=== PATIENT | male | born 1935 | race Caucasian/White ===

== ENCOUNTER 2021-10-21 12:10 | Inpatient (IN) ==
--- NOTE | 2021-10-21 12:39 | Emergency Department Note ---
Weakness HPI General Chief complaint: Weakness Stated complaint: weakness, dehydration Time Seen by Provider: 10/21/21 12:13 Source: EMS Mode of arrival: EMS History of Present Illness HPI Narrative: Narrative: 86-year-old male presents from [facility] via ambulance to be evaluated for progressive weakness and shortness of breath. He says this is been slowly creeping up on him over the past few weeks. He feels very dehydrated and his mouth is dry. He says he does not use oxygen at home but needed on the ambulance and he had oxygen saturations dropping to 88% at [facility]. He has history of heart attack and heart failure and pacemaker. He has a history of chronic A. fib and mitral valve regurgitation. He takes Entresto and Eliquis. He states he has had no chest pain, chest pressure, nausea, vomiting, abdominal pain, dysuria, urgency or frequency. He states he feels very dry in his mouth. He does take Lasix. He has had a rash all over his chest, abdomen and lower extremities it is painful in the lower extremities. He has not been placed on any new medications and does not have any desquamation of mucous membranes. He has been applying salves and this is been helping somewhat. He states his lower extremities are swollen and oozing somewhat. He denies fever or body aches. He is seen by the [facility] cardiology clinic and has an EF of 16% last echo 02/15. Related Data Home Medications Medication Instructions Recorded Confirmed apixaban 2.5 mg tablet 2.5 mg PO BID 05/10/21 09/20/21 furosemide 40 mg tablet 40 mg PO QDAY 05/10/21 09/20/21 metoprolol succinate 100 mg 100 mg PO BID 05/10/21 09/20/21 tablet,extended release 24 hr amiodarone 200 mg tablet 200 mg PO QDAY 07/18/21 09/20/21 mecobalamin (vitamin B12) 5,000 5,000 mcg PO QDAY tab 07/18/21 09/20/21 mcg disintegrating tablet sacubitril 49 mg-valsartan 51 mg 1 tab PO BID 07/18/21 09/20/21 tablet (Entresto) Glucosamine 1500mg-chondroitin 2 cap PO QAM 07/20/21 09/20/21 1200mg Previous Rx's Medication Instructions Recorded acetaminophen 650 mg See Rx Instructions PO .COMPLEX 08/04/21 tablet,extended release (Tylenol #150 tab Arthritis Pain) Allergies Allergy/AdvReac Type Severity Reaction Status Date / Time No Known Drug Allergies Allergy Verified 09/20/21 08:38 Review of Systems ROS ROS Narrative: Narrative: All systems ED: reviewed and negative except as stated. 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 Sclerae non icteric HENMT: Normocephalic Atraumatic head, external nose and ears. Moist MM. Neck: Symmetric, trachea midline, CVS: +S1/S2, MVR. Radial pulses 2+ and equal bilat. 2+ pitting edema of the lower extremities RESP: Unlabored respiratory effort . Clear to auscultation bilaterally (CTAB). No noted wheezes rales or ronchi. GI: Nontender/Nondistended (NTND), No focal tenderness MSK: Extremities w/o deformity or ttp. No cyanosis or clubbing. Lower extremity swelling bilaterally Skin: Warm, Dry . Significant crusting rash across the chest, back, abdomen and lower extremities. He has lotion applied and states this helped significantly. Cap refill less than 2. Neuro: No focal neurological deficit Psych: Awake, Alert, & Oriented (AAO) x3. Appropriate mood and affect . Course Vital Signs Vital signs: Vital Signs Temperature 98.2 F 10/21/21 12:13 Pulse Rate 73 10/21/21 12:13 Respiratory Rate 18 10/21/21 12:13 Blood Pressure 128/94 10/21/21 12:13 Pulse Oximetry (%) 91 10/21/21 12:13 Temperature 98.2 F 10/21/21 12:13 Pulse Rate 80 10/21/21 12:22 Respiratory Rate 16 10/21/21 12:22 Blood Pressure 128/94 10/21/21 12:13 Pulse Oximetry (%) 92 10/21/21 12:22 MDM MDM Narrative Medical decision making narrative: Narrative: Patient is keenly alert and oriented. He is afebrile. He is necessitating 2 L of oxygen via nasal cannula to keep him above 90. He was D satting to 88% at [facility]. He does have a history of heart failure and increasing lower extremity swelling lately. I suspect this could be a congestive heart failure exacerbation. Patient will be evaluated with CBC, CMP, BNP, EKG, chest x-ray and [id number] troponin. CBC: severe macrocytosis, otherwise unremarkable Perhaps b12 or folate deficiency CMP: Creatinine at baseline, otherwise unremarkable BNP: 81292 H EKG: Atrial fibrillation with ventricular paced complexes at a rate of [address] or T wave abnormality to suggest acute ischemia. Chest x-ray: Consistent with congestive heart failure exacerbation as read by myself radiology overread pending [id number] troponin: Normal Patient has clinical picture of congestive heart failure exacerbation, his BNP is elevated, he has oxygen saturations that are below 90 on room air, he has pitting edema of the lower extremities and describes orthopnea. Patient's creatinine is at baseline he will be diuresed with 40 mg of Lasix at this time and the hospitalist be consulted for heart failure exacerbation. Dr. Tai: Graciously agreed to come down and evaluate the patient and accept him for inpatient admission. Discharge Plan Patient/Caregiver Discharge Instructions Pt seen by BISQUE BRUSHER/PA only: Yes Clinical Impression: Acute exacerbation of CHF (congestive heart failure) Patient Disposition: Xfer As Inpt ([facility]) Follow up with: Kory Vidales MD [Primary Care Provider] - Prescriptions: No Action acetaminophen [Tylenol Arthritis Pain] 650 mg tablet extended release See Rx Instructions PO .COMPLEX Qty: 150 12RF Rx Instructions: Take 2 tablets every morning and afternoon, 1 tablet every evening PO. apixaban 2.5 mg tablet 2.5 mg PO BID 0RF furosemide 40 mg tablet 40 mg PO QDAY 0RF metoprolol succinate 100 mg tablet extended release 24 hr 100 mg PO BID 0RF Entresto 49-51 mg tablet 1 tab PO BID 0RF amiodarone 200 mg tablet 200 mg PO QDAY 0RF mecobalamin (vitamin B12) 5,000 mcg tablet,disintegrating 5,000 mcg PO QDAY 0RF Glucosamine 1500mg-chondroitin 1200mg 2 cap PO QAM 0RF
--- NOTE | 2021-10-21 14:13 | XRay Report ---
CLINICAL INFORMATION: Shortness of breath COMPARISON: 04/01/2020. TECHNIQUE: Portable FINDINGS: Moderate cardiomegaly show slight increase. Implantable cardioverter defibrillator remains in stable position without complication. Mediastinum is normal. Moderate-sized infiltrates in both upper lobes have developed and obscure the upper lobe pulmonary vasculature. Minor interstitial disease noted which may represent edema. Small bilateral pleural effusions noted. IMPRESSION: Moderate bilateral upper lobe airspace disease. This is a atypical distribution pattern for pulmonary edema therefore either aspiration or infection is suspected. At least mild underlying CHF is probable although the vessels cannot be assessed due to infiltrate obscuration. If there is clinical support for CHF (elevated BNP, peripheral edema, jugular venous distention etc.), consider diuretic trial repeat two view chest x-ray for reassessment Interpreted and Authenticated by: Mynor Meneses 10/21/21
[2021-10-21 14:16] LABS: Basophils # (Auto) 0.03 K/mcL (0.00-0.30); Basophils % (Auto) 0.4 % (0.0-2.0); Eosinophils # (Auto) 0.81 K/mcL (0.00-0.70); Eosinophils % (Auto) 11.2 % (0.0-7.0); Hematocrit 44.5 % (40.1-51.0); Lymphocytes # (Auto) 1.39 K/mcL (1.50-4.80); Lymphocytes % (Auto) 19.3 % (15.5-49.0); Mean Cell Volume 106.7 fL (80.0-100.0); Mean Corpuscular HGB Conc 31.5 g/dL (31.0-36.0); Mean Platelet Volume 11.2 fL (7.4-10.4); Monocytes # (Auto) 1.42 K/mcL (0.10-0.90); Monocytes % (Auto) 19.7 % (1.0-12.0); Neutrophils % (Auto) 49.4 % (38.0-78.0); Platelet Count 141 K/mcL (140-440); RBC 4.17 M/mcL (4.63-6.08); Red Cell Distribution Width 19.4 % (11.5-14.5); WBC 7.2 K/mcL (4.5-11.0)
[2021-10-21 14:26] LABS: ALT/SGPT 17 U/L (<40); AST/SGOT 35 U/L (<40); Albumin 3.3 gm/dL (3.2-5.2); Albumin/Globulin Ratio 0.8 (1.0-2.3); Alkaline Phosphatase 170 U/L (39-117); Blood Urea Nitrogen 46 mg/dL (8-23); Calcium 8.8 mg/dL (8.6-10.4); Carbon Dioxide 18 mmol/L (22-30); Chloride 108 mmol/L (96-108); Globulin 4.1 gm/dL (2.2-3.7); Glomerular Filtration Rate 41; Glucose 98 mg/dL (70-105)
[2021-10-21] MEDS ORDERED: FUROSEMIDE 40 MG/4 ML VIAL IV ONE (14:29)
[2021-10-21] MEDS ORDERED: ACETAMINOPHEN 325 MG TABLET PO PRN (16:17)
[2021-10-21] MEDS ORDERED: ONDANSETRON 4 MG/2 ML VIAL IV PRN (16:17)
[2021-10-21] MEDS ORDERED: MAG HYDROX/AL HYDROX/SIMETH 30 ML ORAL.SUSP PO PRN (16:17)
[2021-10-21] MEDS ORDERED: CALCIUM CARBONATE 500 MG TAB.CHEW CHEWED PRN (16:17)
[2021-10-21] MEDS ORDERED: PROCHLORPERAZINE 10 MG/2 ML VIAL IV PRN (16:17)
[2021-10-21] MEDS ORDERED: MAGNESIUM HYDROXIDE 30 ML ORAL.SUSP PO PRN (16:17)
[2021-10-21] MEDS ORDERED: hydrALAZINE 20 MG/ML VIAL IV PRN (16:17)
[2021-10-21] MEDS ORDERED: MELATONIN 3 MG TABLET PO PRN (16:17)
[2021-10-21] MEDS ORDERED: DILTIAZEM 25 MG/5 ML VIAL IV PRN (16:17)
--- NOTE | 2021-10-21 16:23 | Cat Scan Report ---
CLINICAL INFORMATION: Pneumonia versus CHF COMPARISON: None TECHNIQUE: 0.625 mm axial slices were obtained from the lung apices through the bases without intravenous contrast. 2.5 mm Sagittal, coronal and axial reformatted images were processed and reviewed at bone, lung and soft tissue windows. 7 mm axial MIP images were also reconstructed to optimize pulmonary nodule detection.The exam was performed using radiation dose optimization techniques including, but not limited to, automated exposure control, adjustment of the mA and/or kV according to patient size and use of iterative reconstruction technique. FINDINGS: Large alveolar infiltrates are seen throughout both upper lobes with peripheral sparing. There are also moderate patchy infiltrates in the right middle lobe, lingula and both lower lobes. There is no interstitial pulmonary edema suggest CHF. Moderate right and small left pleural effusions appreciated. Mediastinal windows show the thoracic aorta is normal in diameter with atherosclerotic plaque. The heart is moderately enlarged with calcific plaque in the coronary arteries. Pacemaker leads in satisfactory position. The noncontrasted pulmonary arteries are normal diameter. A few mildly enlarged lymph nodes seen in the lower mediastinal and bihilar regions likely benign reactive lymph nodes related infiltrates. The esophagus is grossly normal. The thyroid is unremarkable. Bone windows show no osseous abnormality. Severe abdominal images show a 16 mm solitary stone in the gallbladder. The visualized kidneys, spleen, adrenal glands, pancreas and liver are unremarkable. IMPRESSION: 1. Large consolidated infiltrates throughout both upper lobes with moderate infiltrates within the right middle lobe, lingula and both lower lobes. Moderate right and small left pleural effusion is noted. Findings most compatible with aspiration or infection. ARDS is possible, but less likely. This does not have a distribution pattern for pulmonary edema related to CHF 2. Solitary 16 mm stone in the gallbladder Interpreted and Authenticated by: Mynor Meneses 10/21/21
[2021-10-21] MEDS: DOCUSATE SODIUM 100 MG CAPSULE PO SCH (21:26)
[2021-10-21] MEDS: SENNOSIDES 1 TABLET PO SCH (21:26)
[2021-10-21] MEDS: HEPARIN 5,000 UNIT/ML VIAL SQ SCH (21:26)
[2021-10-21] MEDS: QUEtiapine 25 MG TABLET PO PRN (21:26)
[2021-10-21] MEDS: 0.9 % SODIUM CHLORIDE 10 ML SYRINGE IV SCH (21:27)
[2021-10-22] MEDS: 0.9 % SODIUM CHLORIDE 10 ML SYRINGE IV SCH ×2 (05:47→15:17)
[2021-10-22 06:27] LABS: Basophils # (Auto) 0.04 K/mcL (0.00-0.30); Basophils % (Auto) 0.6 % (0.0-2.0); Eosinophils # (Auto) 0.84 K/mcL (0.00-0.70); Eosinophils % (Auto) 11.7 % (0.0-7.0); Hematocrit 41.2 % (40.1-51.0); Lymphocytes # (Auto) 1.23 K/mcL (1.50-4.80); Lymphocytes % (Auto) 17.2 % (15.5-49.0); Mean Cell Volume 107.3 fL (80.0-100.0); Mean Corpuscular HGB Conc 31.6 g/dL (31.0-36.0); Mean Platelet Volume 10.3 fL (7.4-10.4); Monocytes # (Auto) 1.11 K/mcL (0.10-0.90); Monocytes % (Auto) 15.5 % (1.0-12.0); Platelet Count 124 K/mcL (140-440); RBC 3.84 M/mcL (4.63-6.08); Red Cell Distribution Width 18.7 % (11.5-14.5); WBC 7.2 K/mcL (4.5-11.0)
[2021-10-22 06:58] LABS: ALT/SGPT 12 U/L (<40); AST/SGOT 24 U/L (<40); Albumin/Globulin Ratio 0.9 (1.0-2.3); Alkaline Phosphatase 140 U/L (39-117); Bilirubin,Total 1.3 mg/dL (0.1-1.0); Blood Urea Nitrogen 46 mg/dL (8-23); Calcium 8.6 mg/dL (8.6-10.4); Carbon Dioxide 19 mmol/L (22-30); Chloride 108 mmol/L (96-108); Globulin 3.3 gm/dL (2.2-3.7); Glomerular Filtration Rate 45; Glucose 78 mg/dL (70-105)
[2021-10-22] MEDS: PANTOPRAZOLE 40 MG TABLET PO SCH (07:57)
[2021-10-22] MEDS ORDERED: FUROSEMIDE 40 MG/4 ML VIAL IV SCH (08:00)
[2021-10-22] MEDS: METOPROLOL SUCCINATE 50 MG TAB.XL.24H PO SCH ×2 (09:21→20:11)
[2021-10-22] MEDS: DOCUSATE SODIUM 100 MG CAPSULE PO SCH ×2 (09:21→20:14)
[2021-10-22] MEDS: ASPIRIN 81 MG TAB.CHEW CHEWED SCH (09:21)
[2021-10-22] MEDS: APIXABAN 5 MG TABLET PO SCH ×2 (10:29→20:10)
[2021-10-22] MEDS: AMIODARONE HCL 200 MG TABLET PO SCH (10:29)
--- NOTE | 2021-10-22 10:54 | Internal Med History&Physical ---
HPI History of Present Illness Patient information: Note initiated : 10/21/21 at 3:53 pm Service Date, if different from initiated Date: [] Patient: Sami Pineda a 86 y/o M admitted on 10/21/21 for weakness, dehydration. Chief Complaint: [] History of present illness: Mr. Pineda is a 86 year old M This is a 86-year-old gentleman with a history of severe systolic failure with ejection fraction less than 20%, dilated cardiomyopathy biventricular ICD, was transferred from snf facility for further evaluation of progressive weakness and shortness of breath. Patient has been very dehydrated according to the report and his oxygen saturation dropping to 88% at the nursing facility patient has history of heart failure and biventricular ICD and chronic atrial fibrillation and mitral valve regurgitation. Patient takes Entresto and Eliquis has been progressively declining and was transferred over here. Initial evaluation in the ER suggestive of congestive heart failure and patient was given IV Lasix and admitted to our facility for further management Review of systems-history is limited due to limited communication and underlying dementia Constitutional: No reported fatigue no chills, no fever Eyes: no vision changes or pain Cardiovascular: no chest pain, reported intermittent palpitations Respiratory: occasional cough denied any choking episodes or aspiration Gastrointestinal: no nausea and stil have abdominal discomfort. Genitourinary: no dysuria or difficulty voiding Musculoskeletal: no arthralgia or myalgia Integumentary: no skin lesion or wound Neurological: no focal weakness or numbness Psychiatric: no anxiety or depression Physical exam Head: Very sleepy answering questions slowly Eyes: normal appearance, no scleral icterus. Neck: full ROM Respiratory: Bilateral crackles more on the right side and rails and intermittent wheezing Cardiovascular: normal rate and rhythm, S1, S2. GI/Abdominal: soft, nontender, no guarding. Extremities: full range of motion, nontender. Neurological: Slow to respond no focal deficit identified no hallucination no delusions Psychiatric: normal mood. 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) Heart attack (Acute ~01/2019) Arthritis pain (Acute) Medical History Arthritis pain Combined systolic and diastolic heart failure Dilated cardiomyopathy Heart attack (~01/2019) Mitral valve regurgitation Persistent atrial fibrillation Surgical History History of permanent cardiac pacemaker placement (02/11/19) Family History Other No pertinent family history Social History (Updated 07/18/21 @ 13:22 by Avani Pritchett CMA) household members: alone housing: assisted living facility lives independently: No marital status: smoking status: Former smoker smoking status stop date: 05/28/79 alcohol intake frequency: does not drink substance use type: does not use MEDS/ALLERGIES Home Medications and Allergies Home Medications Medication Instructions Recorded Confirmed Type apixaban 2.5 mg tablet 2.5 mg PO BID 05/10/21 10/22/21 History furosemide 40 mg tablet 40 mg PO QDAY 05/10/21 10/22/21 History metoprolol succinate 100 mg 100 mg PO BID 05/10/21 10/22/21 History tablet,extended release 24 hr amiodarone 200 mg tablet 200 mg PO QDAY 07/18/21 10/22/21 History sacubitril 49 mg-valsartan 51 mg 1 tab PO BID 07/18/21 10/22/21 History tablet (Entresto) acetaminophen 650 mg See Rx Instructions PO .COMPLEX 08/04/21 10/22/21 Rx tablet,extended release (Tylenol #150 tab Arthritis Pain) Kacey Allergy 180 mg PO DAILY 10/21/21 10/22/21 History Proctozone-HC 2.5 % TOPICAL Q12HP PRN 10/21/21 10/22/21 History Remedy Calazime Intensive Skin 1 dose TOPICAL DAILY 10/21/21 10/22/21 History ferrous sulfate 1 tab PO Q48H 10/21/21 10/22/21 History cyanocobalamin (vitamin B-12) 5,000 mcg PO DAILY 10/22/21 10/22/21 History 5,000 mcg capsule Allergies Allergy/AdvReac Type Severity Reaction Status Date / Time No Known Drug Allergies Allergy Verified 10/21/21 16:28 EXAM Constitutional Vitals: Temp Pulse Resp BP Pulse Ox 97.5 F 88 19 123/77 93 10/22/21 07:22 10/22/21 05:15 10/22/21 07:22 10/22/21 07:22 10/22/21 07:22 DATA Data Completed and Pending Labs: Labs from last 24 hours 10/22/21 10/22/21 10/22/21 05:32 05:32 00:10 WBC 7.2 RBC 3.84 L Hgb 13.0 L Hct 41.2 MCV 107.3 H MCH 33.9 MCHC 31.6 RDW 18.7 H Plt Count 124 L MPV 10.3 Neut % (Auto) 55.0 Lymph % (Auto) 17.2 [place] % (Auto) 15.5 H Eos % (Auto) 11.7 H Baso % (Auto) 0.6 Lymph # (Auto) 1.23 L [place] # (Auto) 1.11 H Eos # (Auto) 0.84 H Baso # (Auto) 0.04 Absolute Neutrophils 3.94 Sodium 143 Potassium 4.2 Chloride 108 Carbon Dioxide 19 L Anion Gap 16.0 BUN 46 H Creatinine 1.4 H GFR Calculation 45 Glucose 78 Calcium 8.6 Magnesium 2.4 Total Bilirubin 1.3 H AST 24 ALT 12 Alkaline Phosphatase 140 H Troponin T 0.02 NT-Pro-B Natriuret Pep Total Protein 6.3 Albumin 3.0 L Globulin 3.3 Albumin/Globulin Ratio 0.9 L POC Troponin I 10/21/21 10/21/21 10/21/21 17:58 12:38 12:15 WBC RBC Hgb Hct MCV MCH MCHC RDW Plt Count MPV Neut % (Auto) Lymph % (Auto) [place] % (Auto) Eos % (Auto) Baso % (Auto) Lymph # (Auto) [place] # (Auto) Eos # (Auto) Baso # (Auto) Absolute Neutrophils Sodium 141 Potassium 4.9 Chloride 108 Carbon Dioxide 18 L Anion Gap 15.0 BUN 46 H Creatinine 1.5 H GFR Calculation 41 Glucose 98 Calcium 8.8 Magnesium Total Bilirubin 1.0 AST 35 ALT 17 Alkaline Phosphatase 170 H Troponin T < 0.01 NT-Pro-B Natriuret Pep 73108.0 H Total Protein 7.4 Albumin 3.3 Globulin 4.1 H Albumin/Globulin Ratio 0.8 L POC Troponin I 0.01 L 10/21/21 12:15 WBC 7.2 RBC 4.17 L Hgb 14.0 Hct 44.5 MCV 106.7 H MCH 33.6 MCHC 31.5 RDW 19.4 H Plt Count 141 MPV 11.2 H Neut % (Auto) 49.4 Lymph % (Auto) 19.3 [place] % (Auto) 19.7 H Eos % (Auto) 11.2 H Baso % (Auto) 0.4 Lymph # (Auto) 1.39 L [place] # (Auto) 1.42 H Eos # (Auto) 0.81 H Baso # (Auto) 0.03 Absolute Neutrophils 3.57 Sodium Potassium Chloride Carbon Dioxide Anion Gap BUN Creatinine GFR Calculation Glucose Calcium Magnesium Total Bilirubin AST ALT Alkaline Phosphatase Troponin T NT-Pro-B Natriuret Pep Total Protein Albumin Globulin Albumin/Globulin Ratio POC Troponin I A/P Narrative Plan of Treatment: Acute on chronic systolic congestive heart failure Chronic left ventricular failure with ejection fraction around 15 to 20% Dilated cardiomyopathy status post biventricular ICD Persistent atrial fibrillation Moderate to severe mitral regurgitation Plan Patient presented with worsening shortness of breath and weakness He was evaluated his creatinine was slightly elevated 1.5 from baseline 1.2-1.3 Patient was given IV Lasix Patient takes amiodarone at home continued We will obtain a CT scan as there is suspicion about pneumonia Underlying dementia Monitor for any delirium Persistent atrial fibrillation Continue amiodarone Continue metoprolol 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
--- NOTE | 2021-10-22 10:56 | Internal Med Progress Note ---
SUBJECTIVE Subjective Patient information: Note initiated : 10/22/21 at 10:54 am Service Date, if different from initiated Date: [] Patient: Sami Pineda 86 y/o M admitted on 10/21/21 for weakness, dehydration. Chief Complaint: [] Interval history: This is a 86-year-old gentleman with a history of severe systolic failure with ejection fraction less than 20%, dilated cardiomyopathy biventricular ICD, [facility] evaluation of progressive weakness and shortness of breath. Patient has been very dehydrated according to the report and his oxygen saturation dropping to 88% at the nursing facility patient has history of heart failure and biventricular ICD and chronic atrial fibrillation and mitral valve regurgitation. Patient takes Entresto and Eliquis has been progressively declining and was transferred over here. Initial evaluation in the ER suggestive of congestive heart failure and patient was given IV Lasix and admitted to our facility for further management 10/22 Patient was started Zosyn and azithromycin due to CT scan showing definite consolidation and pneumonia Patient continues needing oxygen Discontinue Lasix last night patient appears to be hypovolemic or euvolemic next We will give the patient albumin infusion if his blood pressure drops Review of systems-history is limited due to limited communication and underlying dementia Constitutional: No reported fatigue no chills, no fever Eyes: no vision changes or pain Cardiovascular: no chest pain, reported intermittent palpitations Respiratory: Continued having occasional cough denied any choking episodes or aspiration Gastrointestinal: no nausea and stil have abdominal discomfort. Genitourinary: no dysuria or difficulty voiding Musculoskeletal: no arthralgia or myalgia Integumentary: no skin lesion or wound Neurological: no focal weakness or numbness Psychiatric: no anxiety or depression Physical exam Head: Very sleepy answering questions slowly Eyes: normal appearance, no scleral icterus. Neck: full ROM Respiratory: Crackles and intermittent wheezing and rails no significant improvement Cardiovascular: normal rate and rhythm, S1, S2. GI/Abdominal: soft, nontender, no guarding. Extremities: full range of motion, nontender. Neurological: Slow to respond no focal deficit identified no hallucination no delusions Psychiatric: normal mood. Skin: Multiple bruises and ecchymosis Constitutional Vitals: Vital Signs Temp Pulse Resp BP Pulse Ox 97.5 F 88 19 123/77 93 10/22/21 07:22 10/22/21 05:15 10/22/21 07:22 10/22/21 07:22 10/22/21 07:22 Period Temp Pulse Resp BP Sys/[place] Pulse Ox Last 24 Hr 97.1 F-98.3 F 70-90 14-25 112-136/64-97 91-98 Intake and Output 10/21/21 10/22/21 10/22/21 21:59 05:59 13:59 Output Total 350 500 Balance -350 -500 Weight 69.264 kg Intake & Output: Intake & Output 10/21/21 10/22/21 10/22/21 21:59 05:59 13:59 Output Total 350 500 Balance -350 -500 Weight 69.264 kg Output: Void Amount 350 500 Other: Urine Appearance Clear Clear Urine Color Dark Yellow Dark Yellow Urine Odor Normal # Voids 1 OBJ DATA Labs CBC & Chem 7: 10/22/21 05:32 10/22/21 05:32 Labs: Abnormal Lab Results 10/22/21 10/22/21 10/21/21 05:32 05:32 12:38 RBC 3.84 L Hgb 13.0 L MCV 107.3 H RDW 18.7 H Plt Count 124 L MPV [place] % (Auto) 15.5 H Eos % (Auto) 11.7 H Lymph # (Auto) 1.23 L [place] # (Auto) 1.11 H Eos # (Auto) 0.84 H Carbon Dioxide 19 L BUN 46 H Creatinine 1.4 H Total Bilirubin 1.3 H Alkaline Phosphatase 140 H NT-Pro-B Natriuret Pep Albumin 3.0 L Globulin Albumin/Globulin Ratio 0.9 L POC Troponin I 0.01 L 10/21/21 10/21/21 12:15 12:15 RBC 4.17 L Hgb MCV 106.7 H RDW 19.4 H Plt Count MPV 11.2 H [place] % (Auto) 19.7 H Eos % (Auto) 11.2 H Lymph # (Auto) 1.39 L [place] # (Auto) 1.42 H Eos # (Auto) 0.81 H Carbon Dioxide 18 L BUN 46 H Creatinine 1.5 H Total Bilirubin Alkaline Phosphatase 170 H NT-Pro-B Natriuret Pep 09981.0 H Albumin Globulin 4.1 H Albumin/Globulin Ratio 0.8 L POC Troponin I Meds: Medications Acetaminophen (Acetaminophen 325 Mg Tablet) 650 mg PO Q6HP PRN; Protocol PRN Reason: Per Pain Protocol/Fever > 101 Last Admin: 10/21/21 21:32 Dose: 650 mg Documented by: Al Hydrox/Mg Hydrox/Simethicone (Mag Hydrox/Al Hydrox/Simeth 30 Ml Oral.Susp) 30 ml PO Q6HP PRN PRN Reason: Dyspepsia Albuterol Sulfate (Albuterol Sulfate 2.5 Mg/3 Ml Nebulizer) 2.5 mg NEB Q2HP PRN PRN Reason: Shortness Of Breath Amiodarone HCl (Amiodarone Hcl 200 Mg Tablet) 200 mg PO QDAY [facility] Last Admin: 10/22/21 10:29 Dose: 200 mg Documented by: Apixaban (Apixaban 5 Mg Tablet) 2.5 mg PO BID [facility] Last Admin: 10/22/21 10:29 Dose: 2.5 mg Documented by: Aspirin (Aspirin 81 Mg Tab.Chew) 81 mg CHEWED DAILY [facility] Last Admin: 10/22/21 09:21 Dose: 81 mg Documented by: Azithromycin (Azithromycin 250 Mg Tablet) 250 mg PO DAILY [facility]; Protocol Stop: 10/25/21 09:01 Calcium Carbonate/Glycine (Calcium Carbonate 500 Mg Tab.Chew) 1,000 mg CHEWED Q4HP PRN PRN Reason: Dyspepsia Diltiazem HCl (Diltiazem 25 Mg/5 Ml Vial) 10 mg IV Q4HP PRN PRN Reason: Tachyarrhythmias Docusate Sodium (Docusate Sodium 100 Mg Capsule) 100 mg PO BID [facility] Last Admin: 10/22/21 09:21 Dose: 100 mg Documented by: Hydralazine HCl (Hydralazine 20 Mg/Ml Vial) 10 mg IV Q4-6HP PRN PRN Reason: Hypertension Piperacillin Sod/Tazobactam (Sod 3.375 gm/ Dextrose) 50 mls @ 100 mls/hr IV Q6H [facility]; Protocol Magnesium Hydroxide (Magnesium Hydroxide 30 Ml Oral.Susp) 30 ml PO DAILYP PRN PRN Reason: Constipation Melatonin (Melatonin 3 Mg Tablet) 3 mg PO HSP PRN PRN Reason: Insomnia Last Admin: 10/21/21 21:26 Dose: 3 mg Documented by: Metoprolol Succinate (Metoprolol Succinate 50 Mg Tab.Xl.24h) 100 mg PO BID [facility] Last Admin: 10/22/21 09:21 Dose: 100 mg Documented by: Ondansetron HCl (Ondansetron 4 Mg/2 Ml Vial) 4 mg IV Q6HP PRN PRN Reason: Nausea And Vomiting Pantoprazole Sodium (Pantoprazole 40 Mg Tablet) 40 mg PO QAMAC [facility] Last Admin: 10/22/21 07:57 Dose: 40 mg Documented by: Prochlorperazine (Prochlorperazine 10 Mg/2 Ml Vial) 5 mg IV Q4HP PRN PRN Reason: Nausea And Vomiting Quetiapine Fumarate (Quetiapine 25 Mg Tablet) 12.5 mg PO HSP PRN PRN Reason: iNSOMNIA-2nd option Last Admin: 10/21/21 21:26 Dose: 12.5 mg Documented by: Senna (Sennosides 1 Tablet) 2 tab PO HS [facility] Last Admin: 10/21/21 21:26 Dose: 2 tab Documented by: Sodium Chloride (0.9 % Sodium Chloride 10 Ml Syringe) 10 ml IV Q8 [facility] Last Admin: 10/22/21 05:47 Dose: 10 ml Documented by: Tramadol HCl (Tramadol 50 Mg Tablet) 50 mg PO Q4-6HP PRN; Protocol PRN Reason: Pain A/P Narrative Plan of Treatment: Acute hypoxemic respiratory failure Community-acquired pneumonia Patient chest CT scan showing evidence of consolidation and pneumonia No leukocytosis no fever Possible aspiration Plan Will monitor for any aspiration Sputum culture and gram stain ordered We will start the patient on antibiotic Acute on chronic systolic congestive heart failure Chronic left ventricular failure with ejection fraction around 15 to 20% Dilated cardiomyopathy status post biventricular ICD Persistent atrial fibrillation Moderate to severe mitral regurgitation Plan Patient presented with worsening shortness of breath and weakness He was evaluated his creatinine was slightly elevated 1.5 from baseline 1.2-1.3 Patient was given IV Lasix Patient takes amiodarone at home continued We will obtain a CT scan as there is suspicion about pneumonia Underlying dementia Monitor for any delirium Persistent atrial fibrillation Continue amiodarone 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
[2021-10-22] MEDS: HEPARIN 5,000 UNIT/ML VIAL SQ SCH (11:22)
[2021-10-22] MEDS: PIPERACILLIN SODIUM/TAZOBACTAM 3.375 GM in DEXTROSE 5% IN WATER 50 ML IV SCH ×2 (11:44→17:09)
[2021-10-22] MEDS: AZITHROMYCIN 250 MG TABLET PO SCH (11:44)
[2021-10-22] MEDS: traMADol 50 MG TABLET PO PRN (17:09)
[2021-10-22] MEDS: QUEtiapine 25 MG TABLET PO PRN (20:11)
[2021-10-22] MEDS: SENNOSIDES 1 TABLET PO SCH (20:14)
[2021-10-23] MEDS: 0.9 % SODIUM CHLORIDE 10 ML SYRINGE IV SCH ×3 (00:08→14:36)
[2021-10-23] MEDS: PIPERACILLIN SODIUM/TAZOBACTAM 3.375 GM in DEXTROSE 5% IN WATER 50 ML IV SCH ×2 (00:08→06:31)
[2021-10-23 06:43] LABS: Basophils # (Auto) 0.04 K/mcL (0.00-0.30); Basophils % (Auto) 0.6 % (0.0-2.0); Eosinophils # (Auto) 0.78 K/mcL (0.00-0.70); Eosinophils % (Auto) 11.3 % (0.0-7.0); Hematocrit 40.9 % (40.1-51.0); Hemoglobin 12.7 g/dL (13.7-17.5); Lymphocytes # (Auto) 1.12 K/mcL (1.50-4.80); Lymphocytes % (Auto) 16.3 % (15.5-49.0); Mean Cell Volume 109.7 fL (80.0-100.0); Mean Corpuscular HGB Conc 31.1 g/dL (31.0-36.0); Mean Platelet Volume 10.2 fL (7.4-10.4); Monocytes # (Auto) 1.08 K/mcL (0.10-0.90); Monocytes % (Auto) 15.7 % (1.0-12.0); Neutrophils % (Auto) 56.1 % (38.0-78.0); Platelet Count 127 K/mcL (140-440); RBC 3.73 M/mcL (4.63-6.08); Red Cell Distribution Width 18.7 % (11.5-14.5); WBC 6.9 K/mcL (4.5-11.0)
[2021-10-23 07:04] LABS: ALT/SGPT 12 U/L (<40); AST/SGOT 23 U/L (<40); Albumin 2.7 gm/dL (3.2-5.2); Albumin/Globulin Ratio 0.8 (1.0-2.3); Alkaline Phosphatase 131 U/L (39-117); Bilirubin,Total 1.1 mg/dL (0.1-1.0); Blood Urea Nitrogen 37 mg/dL (8-23); Calcium 8.5 mg/dL (8.6-10.4); Carbon Dioxide 21 mmol/L (22-30); Chloride 108 mmol/L (96-108); Globulin 3.3 gm/dL (2.2-3.7); Glomerular Filtration Rate 45; Glucose 83 mg/dL (70-105)
[2021-10-23] MEDS: PANTOPRAZOLE 40 MG TABLET PO SCH (07:21)
[2021-10-23] MEDS: AMIODARONE HCL 200 MG TABLET PO SCH (08:57)
[2021-10-23] MEDS: AZITHROMYCIN 250 MG TABLET PO SCH (08:57)
[2021-10-23] MEDS: DOCUSATE SODIUM 100 MG CAPSULE PO SCH ×2 (08:57→20:09)
[2021-10-23] MEDS: APIXABAN 5 MG TABLET PO SCH ×2 (08:57→20:09)
[2021-10-23] MEDS: METOPROLOL SUCCINATE 50 MG TAB.XL.24H PO SCH ×2 (08:58→20:09)
[2021-10-23] MEDS: ASPIRIN 81 MG TAB.CHEW CHEWED SCH (08:58)
--- NOTE | 2021-10-23 10:05 | Internal Med Progress Note ---
SUBJECTIVE Subjective Patient information: Note initiated : 10/23/21 at 10:05 am Service Date, if different from initiated Date: [] Patient: Sami Pineda 86 y/o M admitted on 10/21/21 for weakness, dehydration. Chief Complaint: [] Interval history: 86-year-old gentleman with a history of severe systolic failure with ejection fraction less than 20%, dilated cardiomyopathy biventricular ICD, [facility] further evaluation of progressive weakness and shortness of breath. Patient has been very dehydrated according to the report and his oxygen saturation dropping to 88% at the nursing facility patient has history of heart failure and biventricular ICD and chronic atrial fibrillation and mitral valve regurgitation. Patient takes Entresto and Eliquis has been progressively declining and was transferred over here. Initial evaluation in the ER suggestive of congestive heart failure and patient was giv en IV Lasix and admitted to our facility for further management 10/22 Patient was started Zosyn and azithromycin due to CT scan showing definite consolidation and pneumonia Patient continues needing oxygen Discontinue Lasix last night patient appears to be hypovolemic or euvolemic next We will give the patient albumin infusion if his blood pressure drops 10/23 Patient continues needing 2 L of nasal cannula oxygen Continue Zosyn and azithromycin Family talk to the care team about considering hospice care for the patient wt poor quality of life Review of systems-history is limited due to limited communication and underlying dementia Constitutional: No reported fatigue no chills, no fever Cardiovascular: no chest pain, reported intermittent palpitations Respiratory: Continued having occasional cough denied any choking episodes or aspiration Gastrointestinal: no nausea and stil have abdominal discomfort. Genitourinary: no dysuria or difficulty voiding Neurological: no focal weakness or numbness Physical exam Head: Very sleepy answering questions slowly Eyes: normal appearance, no scleral icterus. Neck: full ROM Respiratory: Crackles and intermittent wheezing and rails no significant improvement Cardiovascular: normal rate and rhythm, S1, S2. GI/Abdominal: soft, nontender, no guarding. Extremities: full range of motion, nontender. Neurological: Slow to respond no focal deficit identified no hallucination no delusions Psychiatric: normal mood. Skin: Multiple bruises and ecchymosis Constitutional Vitals: Vital Signs Temp Pulse Resp BP Pulse Ox 97.8 F 75 16 128/68 94 10/23/21 07:07 10/23/21 07:07 10/23/21 07:07 10/23/21 08:30 10/23/21 07:07 Period Temp Pulse Resp BP Sys/[place] Pulse Ox Last 24 Hr 97.0 F-97.8 F 70-82 16-22 87-129/42-80 90-98 Intake and Output 10/22/21 10/23/21 10/23/21 21:59 05:59 13:59 Intake Total 850 50 Output Total 475 1755 Balance 375 -1705 Weight 68.991 kg Intake & Output: Intake & Output 10/22/21 10/23/21 10/23/21 21:59 05:59 13:59 Intake Total 850 50 Output Total 475 1755 Balance 375 -1705 Weight 68.991 kg Intake: IV 50 50 Zosyn 3.375 gm In Dextrose 5% 50 50 in Water 50 ml @ 100 mls/hr IV Q6H [facility] Rx#:[id number] Oral 800 Output: Void Amount 475 1755 Other: Meal Lunch Percent of Meal Consumed 0% Urine Appearance Clear Clear Urine Color Bright Yellow Dark Yellow OBJ DATA Labs CBC & Chem 7: 10/23/21 05:34 10/23/21 05:34 Labs: Abnormal Lab Results 10/23/21 10/23/21 10/22/21 05:34 05:34 05:32 RBC 3.73 L Hgb 12.7 L MCV 109.7 H RDW 18.7 H Plt Count 127 L MPV [place] % (Auto) 15.7 H Eos % (Auto) 11.3 H Lymph # (Auto) 1.12 L [place] # (Auto) 1.08 H Eos # (Auto) 0.78 H Carbon Dioxide 21 L 19 L BUN 37 H 46 H Creatinine 1.4 H 1.4 H Calcium 8.5 L Total Bilirubin 1.1 H 1.3 H Alkaline Phosphatase 131 H 140 H NT-Pro-B Natriuret Pep Albumin 2.7 L 3.0 L Globulin Albumin/Globulin Ratio 0.8 L 0.9 L POC Troponin I 10/22/21 10/21/21 10/21/21 05:32 12:38 12:15 RBC 3.84 L Hgb 13.0 L MCV 107.3 H RDW 18.7 H Plt Count 124 L MPV [place] % (Auto) 15.5 H Eos % (Auto) 11.7 H Lymph # (Auto) 1.23 L [place] # (Auto) 1.11 H Eos # (Auto) 0.84 H Carbon Dioxide 18 L BUN 46 H Creatinine 1.5 H Calcium Total Bilirubin Alkaline Phosphatase 170 H NT-Pro-B Natriuret Pep 74588.0 H Albumin Globulin 4.1 H Albumin/Globulin Ratio 0.8 L POC Troponin I 0.01 L 10/21/21 12:15 RBC 4.17 L Hgb MCV 106.7 H RDW 19.4 H Plt Count MPV 11.2 H [place] % (Auto) 19.7 H Eos % (Auto) 11.2 H Lymph # (Auto) 1.39 L [place] # (Auto) 1.42 H Eos # (Auto) 0.81 H Carbon Dioxide BUN Creatinine Calcium Total Bilirubin Alkaline Phosphatase NT-Pro-B Natriuret Pep Albumin Globulin Albumin/Globulin Ratio POC Troponin I Meds: Medications Acetaminophen (Acetaminophen 325 Mg Tablet) 650 mg PO Q6HP PRN; Protocol PRN Reason: Per Pain Protocol/Fever > 101 Last Admin: 10/21/21 21:32 Dose: 650 mg Documented by: Al Hydrox/Mg Hydrox/Simethicone (Mag Hydrox/Al Hydrox/Simeth 30 Ml Oral.Susp) 30 ml PO Q6HP PRN PRN Reason: Dyspepsia Albuterol Sulfate (Albuterol Sulfate 2.5 Mg/3 Ml Nebulizer) 2.5 mg NEB Q2HP PRN PRN Reason: Shortness Of Breath Amiodarone HCl (Amiodarone Hcl 200 Mg Tablet) 200 mg PO QDAY [facility] Last Admin: 10/23/21 08:57 Dose: 200 mg Documented by: Apixaban (Apixaban 5 Mg Tablet) 2.5 mg PO BID [facility] Last Admin: 10/23/21 08:57 Dose: 2.5 mg Documented by: Aspirin (Aspirin 81 Mg Tab.Chew) 81 mg CHEWED DAILY [facility] Last Admin: 10/23/21 08:58 Dose: 81 mg Documented by: Azithromycin (Azithromycin 250 Mg Tablet) 250 mg PO DAILY [facility]; Protocol Stop: 10/25/21 09:01 Last Admin: 10/23/21 08:57 Dose: 250 mg Documented by: Calcium Carbonate/Glycine (Calcium Carbonate 500 Mg Tab.Chew) 1,000 mg CHEWED Q4HP PRN PRN Reason: Dyspepsia Diltiazem HCl (Diltiazem 25 Mg/5 Ml Vial) 10 mg IV Q4HP PRN PRN Reason: Tachyarrhythmias Docusate Sodium (Docusate Sodium 100 Mg Capsule) 100 mg PO BID [facility] Last Admin: 10/23/21 08:57 Dose: Not Given Documented by: Hydralazine HCl (Hydralazine 20 Mg/Ml Vial) 10 mg IV Q4-6HP PRN PRN Reason: Hypertension Piperacillin Sod/Tazobactam (Sod 2.25 gm/ Dextrose) 50 mls @ 100 mls/hr IV Q6H [facility]; Protocol Magnesium Hydroxide (Magnesium Hydroxide 30 Ml Oral.Susp) 30 ml PO DAILYP PRN PRN Reason: Constipation Melatonin (Melatonin 3 Mg Tablet) 3 mg PO HSP PRN PRN Reason: Insomnia Last Admin: 10/21/21 21:26 Dose: 3 mg Documented by: Metoprolol Succinate (Metoprolol Succinate 50 Mg Tab.Xl.24h) 100 mg PO BID [facility] Last Admin: 10/23/21 08:58 Dose: 100 mg Documented by: Ondansetron HCl (Ondansetron 4 Mg/2 Ml Vial) 4 mg IV Q6HP PRN PRN Reason: Nausea And Vomiting Pantoprazole Sodium (Pantoprazole 40 Mg Tablet) 40 mg PO QAMAC [facility] Last Admin: 10/23/21 07:21 Dose: 40 mg Documented by: Prochlorperazine (Prochlorperazine 10 Mg/2 Ml Vial) 5 mg IV Q4HP PRN PRN Reason: Nausea And Vomiting Quetiapine Fumarate (Quetiapine 25 Mg Tablet) 12.5 mg PO HSP PRN PRN Reason: iNSOMNIA-2nd option Last Admin: 10/22/21 20:11 Dose: 12.5 mg Documented by: Senna (Sennosides 1 Tablet) 2 tab PO [facility] Last Admin: 10/22/21 20:14 Dose: Not Given Documented by: Sodium Chloride (0.9 % Sodium Chloride 10 Ml Syringe) 10 ml IV Q8 [facility] Last Admin: 10/23/21 06:31 Dose: 10 ml Documented by: Tramadol HCl (Tramadol 50 Mg Tablet) 50 mg PO Q4-6HP PRN; Protocol PRN Reason: Pain Last Admin: 10/22/21 17:09 Dose: 50 mg Documented by: A/P Narrative Plan of Treatment: Acute hypoxemic respiratory failure Community-acquired pneumonia Patient chest CT scan showing evidence of consolidation and pneumonia No leukocytosis no fever Possible aspiration Plan Will monitor for any aspiration Sputum culture and gram stain ordered Continue Zosyn and azithromycin Acute on chronic systolic congestive heart failure Chronic left ventricular failure with ejection fraction around 15 to 20% Dilated cardiomyopathy status post biventricular ICD Persistent atrial fibrillation Moderate to severe mitral regurgitation Plan Patient presented with worsening shortness of breath and weakness He was evaluated his creatinine was slightly elevated 1.5 from baseline 1.2-1.3 Patient was given IV Lasix x2 and appears to be euvolemic Patient takes amiodarone at home continued Underlying dementia Monitor for any delirium Persistent atrial fibrillation Continue amiodarone 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
[2021-10-23] MEDS: traMADol 50 MG TABLET PO PRN ×2 (10:23→17:55)
[2021-10-23] MEDS: PIPERACILLIN SODIUM/TAZOBACTAM 2.25 GM in DEXTROSE 5% IN WATER 50 ML IV SCH ×2 (12:16→17:51)
[2021-10-23] MEDS: SENNOSIDES 1 TABLET PO SCH (20:09)
[2021-10-24] MEDS: 0.9 % SODIUM CHLORIDE 10 ML SYRINGE IV SCH ×4 (00:01→23:54)
[2021-10-24] MEDS: PIPERACILLIN SODIUM/TAZOBACTAM 2.25 GM in DEXTROSE 5% IN WATER 50 ML IV SCH ×5 (05:53→23:53)
[2021-10-24 06:56] LABS: Basophils # (Auto) 0.05 K/mcL (0.00-0.30); Basophils % (Auto) 0.7 % (0.0-2.0); Eosinophils # (Auto) 0.87 K/mcL (0.00-0.70); Eosinophils % (Auto) 11.4 % (0.0-7.0); Hematocrit 40.8 % (40.1-51.0); Hemoglobin 12.7 g/dL (13.7-17.5); Lymphocytes # (Auto) 1.05 K/mcL (1.50-4.80); Lymphocytes % (Auto) 13.7 % (15.5-49.0); Mean Cell Volume 109.4 fL (80.0-100.0); Mean Corpuscular HGB Conc 31.1 g/dL (31.0-36.0); Mean Platelet Volume 10.3 fL (7.4-10.4); Monocytes % (Auto) 14.4 % (1.0-12.0); Neutrophils % (Auto) 59.8 % (38.0-78.0); Platelet Count 129 K/mcL (140-440); RBC 3.73 M/mcL (4.63-6.08); Red Cell Distribution Width 18.6 % (11.5-14.5); WBC 7.7 K/mcL (4.5-11.0)
[2021-10-24] MEDS: PANTOPRAZOLE 40 MG TABLET PO SCH (07:11)
[2021-10-24 07:46] LABS: ALT/SGPT 13 U/L (<40); AST/SGOT 24 U/L (<40); Albumin 2.8 gm/dL (3.2-5.2); Albumin/Globulin Ratio 0.8 (1.0-2.3); Alkaline Phosphatase 137 U/L (39-117); Bilirubin,Total 1.2 mg/dL (0.1-1.0); Blood Urea Nitrogen 34 mg/dL (8-23); Calcium 8.6 mg/dL (8.6-10.4); Carbon Dioxide 19 mmol/L (22-30); Chloride 109 mmol/L (96-108); Globulin 3.4 gm/dL (2.2-3.7); Glomerular Filtration Rate 49; Glucose 85 mg/dL (70-105)
[2021-10-24] MEDS: AZITHROMYCIN 250 MG TABLET PO SCH (08:15)
[2021-10-24] MEDS: ASPIRIN 81 MG TAB.CHEW CHEWED SCH (08:15)
[2021-10-24] MEDS: DOCUSATE SODIUM 100 MG CAPSULE PO SCH ×2 (08:15→21:41)
[2021-10-24] MEDS: METOPROLOL SUCCINATE 50 MG TAB.XL.24H PO SCH ×2 (08:15→21:42)
[2021-10-24] MEDS: AMIODARONE HCL 200 MG TABLET PO SCH (08:16)
[2021-10-24] MEDS: APIXABAN 5 MG TABLET PO SCH ×2 (08:16→21:42)
--- NOTE | 2021-10-24 12:00 | Internal Med Progress Note ---
SUBJECTIVE Subjective Patient information: Note initiated : 10/24/21 at 12:00 pm Service Date, if different from initiated Date: [] Patient: Sami Pineda 86 y/o M admitted on 10/21/21 for weakness, dehydration. Chief Complaint: [] Interval history: 86-year-old gentleman with a history of severe systolic failure with ejection fraction less than 20%, dilated cardiomyopathy biventricular ICD, was transferred from [facility] facility for further evaluation of progressive weakness and shortness of breath. Patient has been very dehydrated according to the report and his oxygen saturation dropping to 88% at the nursing facility patient has history of heart failure and biventricular ICD and chronic atrial fibrillation and mitral valve regurgitation. Patient takes Entresto and Eliquis has been progressively declining and was transferred over here. Initial evaluation in the ER suggestive of congestive heart failure and patient was giv en IV Lasix and admitted to our facility for further management 10/22 Patient was started Zosyn and azithromycin due to CT scan showing definite consolidation and pneumonia Patient continues needing oxygen Discontinue Lasix last night patient appears to be hypovolemic or euvolemic next We will give the patient albumin infusion if his blood pressure drops 10/23 Patient continues needing 2 L of nasal cannula oxygen Continue Zosyn and azithromycin Family talk to the care team about considering hospice care for the patient wt poor quality of life 10/24 Patient continue no agitations drowsiness seems to be improving Continue Zosyn Patient needing placement Review of systems- 10 point review of system unremarkable Patient denied any respiratory symptoms other than cough chest symptoms and ches t congestion improving Physical exam Head: Very sleepy answering questions slowly Respiratory: Crackles and intermittent wheezing and rails no significant improvement Cardiovascular: Edema improved GI/Abdominal: soft, nontender, no guarding. Extremities: full range of motion, nontender. Neurological: Slow to respond no focal deficit identified no hallucination no delusions Psychiatric: No active hallucination Constitutional Vitals: Vital Signs Temp Pulse Resp BP Pulse Ox 97.3 F 99 H 20 119/83 90 10/24/21 08:00 10/24/21 08:00 10/24/21 08:00 10/24/21 08:00 10/24/21 08:00 Period Temp Pulse Resp BP Sys/Wellington Pulse Ox Last 24 Hr 97.3 F-97.8 F 78-99 16-24 95-119/59-83 90-97 Intake and Output 10/23/21 10/24/21 10/24/21 21:59 05:59 13:59 Intake Total 50 50 410 Output Total 800 475 Balance -750 -425 410 Weight 69.763 kg Intake & Output: Intake & Output 10/23/21 10/24/21 10/24/21 21:59 05:59 13:59 Intake Total 50 50 410 Output Total 800 475 Balance -750 -425 410 Weight 69.763 kg Intake: IV 50 50 50 Zosyn 2.25 gm In Dextrose 5% in 50 50 50 Water 50 ml @ 100 mls/hr IV Q6H [facility] Rx#:[id number] Oral 360 Output: Void Amount 800 475 Other: Meal Breakfast Percent of Meal Consumed 100% Nourishment/Supplement name 1000 Urine Appearance Clear Urine Color Dark Yellow Dark Yellow Urine Odor Normal Strong Stool Size Moderate Stool Color Brown # Bowel Movements 1 OBJ DATA Labs CBC & Chem 7: 10/24/21 05:17 10/24/21 05:17 Labs: Abnormal Lab Results 10/24/21 10/24/21 10/23/21 05:17 05:17 05:34 RBC 3.73 L Hgb 12.7 L MCV 109.4 H RDW 18.6 H Plt Count 129 L MPV Lymph % (Auto) 13.7 L Y[place] % (Auto) 14.4 H Eos % (Auto) 11.4 H Lymph # (Auto) 1.05 L [place] # (Auto) 1.10 H Eos # (Auto) 0.87 H Chloride 109 H Carbon Dioxide 19 L 21 L BUN 34 H 37 H Creatinine 1.3 H 1.4 H Calcium 8.5 L Magnesium 2.6 H Total Bilirubin 1.2 H 1.1 H Alkaline Phosphatase 137 H 131 H NT-Pro-B Natriuret Pep Albumin 2.8 L 2.7 L Globulin Albumin/Globulin Ratio 0.8 L 0.8 L POC Troponin I 10/23/21 10/22/21 10/22/21 05:34 05:32 05:32 RBC 3.73 L 3.84 L Hgb 12.7 L 13.0 L MCV 109.7 H 107.3 H RDW 18.7 H 18.7 H Plt Count 127 L 124 L MPV Lymph % (Auto) Yates % (Auto) 15.7 H 15.5 H Eos % (Auto) 11.3 H 11.7 H Lymph # (Auto) 1.12 L 1.23 L Y[place] # (Auto) 1.08 H 1.11 H Eos # (Auto) 0.78 H 0.84 H Chloride Carbon Dioxide 19 L BUN 46 H Creatinine 1.4 H Calcium Magnesium Total Bilirubin 1.3 H Alkaline Phosphatase 140 H NT-Pro-B Natriuret Pep Albumin 3.0 L Globulin Albumin/Globulin Ratio 0.9 L POC Troponin I 10/21/21 10/21/21 10/21/21 12:38 12:15 12:15 RBC 4.17 L Hgb MCV 106.7 H RDW 19.4 H Plt Count MPV 11.2 H Lymph % (Auto) Yates % (Auto) 19.7 H Eos % (Auto) 11.2 H Lymph # (Auto) 1.39 L [place] # (Auto) 1.42 H Eos # (Auto) 0.81 H Chloride Carbon Dioxide 18 L BUN 46 H Creatinine 1.5 H Calcium Magnesium Total Bilirubin Alkaline Phosphatase 170 H NT-Pro-B Natriuret Pep 40724.0 H Albumin Globulin 4.1 H Albumin/Globulin Ratio 0.8 L POC Troponin I 0.01 L Meds: Medications Acetaminophen (Acetaminophen 325 Mg Tablet) 650 mg PO Q6HP PRN; Protocol PRN Reason: Per Pain Protocol/Fever > 101 Last Admin: 10/21/21 21:32 Dose: 650 mg Documented by: Al Hydrox/Mg Hydrox/Simethicone (Mag Hydrox/Al Hydrox/Simeth 30 Ml Oral.Susp) 30 ml PO Q6HP PRN PRN Reason: Dyspepsia Albuterol Sulfate (Albuterol Sulfate 2.5 Mg/3 Ml Nebulizer) 2.5 mg NEB Q2HP PRN PRN Reason: Shortness Of Breath Amiodarone HCl (Amiodarone Hcl 200 Mg Tablet) 200 mg PO QDAY [facility] Last Admin: 10/24/21 08:16 Dose: 200 mg Documented by: Apixaban (Apixaban 5 Mg Tablet) 2.5 mg PO BID [facility] Last Admin: 10/24/21 08:16 Dose: 2.5 mg Documented by: Aspirin (Aspirin 81 Mg Tab.Chew) 81 mg CHEWED DAILY [facility] Last Admin: 10/24/21 08:15 Dose: 81 mg Documented by: Azithromycin (Azithromycin 250 Mg Tablet) 250 mg PO DAILY [facility]; Protocol Stop: 10/25/21 09:01 Last Admin: 10/24/21 08:15 Dose: 250 mg Documented by: Calcium Carbonate/Glycine (Calcium Carbonate 500 Mg Tab.Chew) 1,000 mg CHEWED Q4HP PRN PRN Reason: Dyspepsia Diltiazem HCl (Diltiazem 25 Mg/5 Ml Vial) 10 mg IV Q4HP PRN PRN Reason: Tachyarrhythmias Docusate Sodium (Docusate Sodium 100 Mg Capsule) 100 mg PO BID [facility] Last Admin: 10/24/21 08:15 Dose: 100 mg Documented by: Hydralazine HCl (Hydralazine 20 Mg/Ml Vial) 10 mg IV Q4-6HP PRN PRN Reason: Hypertension Piperacillin Sod/Tazobactam (Sod 2.25 gm/ Dextrose) 50 mls @ 100 mls/hr IV Q6H [facility]; Protocol Last Admin: 10/24/21 11:36 Dose: 100 mls/hr Documented by: Magnesium Hydroxide (Magnesium Hydroxide 30 Ml Oral.Susp) 30 ml PO DAILYP PRN PRN Reason: Constipation Melatonin (Melatonin 3 Mg Tablet) 3 mg PO HSP PRN PRN Reason: Insomnia Last Admin: 10/21/21 21:26 Dose: 3 mg Documented by: Metoprolol Succinate (Metoprolol Succinate 50 Mg Tab.Xl.24h) 100 mg PO BID [facility] Last Admin: 10/24/21 08:15 Dose: 100 mg Documented by: Ondansetron HCl (Ondansetron 4 Mg/2 Ml Vial) 4 mg IV Q6HP PRN PRN Reason: Nausea And Vomiting Pantoprazole Sodium (Pantoprazole 40 Mg Tablet) 40 mg PO QAMAC [facility] Last Admin: 10/24/21 07:11 Dose: 40 mg Documented by: Prochlorperazine (Prochlorperazine 10 Mg/2 Ml Vial) 5 mg IV Q4HP PRN PRN Reason: Nausea And Vomiting Quetiapine Fumarate (Quetiapine 25 Mg Tablet) 12.5 mg PO HSP PRN PRN Reason: iNSOMNIA-2nd option Last Admin: 10/22/21 20:11 Dose: 12.5 mg Documented by: Senna (Sennosides 1 Tablet) [address] [facility] Last Admin: 05/29/22 20:09 Dose: 2 tab Documented by: Sodium Chloride (0.9 % Sodium Chloride 10 Ml Syringe) 10 ml IV Q8 [facility] Last Admin: 10/24/21 05:54 Dose: 10 ml Documented by: Tramadol HCl (Tramadol 50 Mg Tablet) 50 mg PO Q4-6HP PRN; Protocol PRN Reason: Pain Last Admin: 10/23/21 17:55 Dose: 50 mg Documented by: A/P Narrative Plan of Treatment: Acute hypoxemic respiratory failure Community-acquired pneumonia Patient chest CT scan showing evidence of consolidation and pneumonia No leukocytosis no fever Possible aspiration Plan Will monitor for any aspiration Sputum culture and gram stain ordered Continue Zosyn and azithromycin Acute on chronic systolic congestive heart failure Chronic left ventricular failure with ejection fraction around 15 to 20% Dilated cardiomyopathy status post biventricular ICD Persistent atrial fibrillation Moderate to severe mitral regurgitation Plan Patient presented with worsening shortness of breath and weakness He was evaluated his creatinine was slightly elevated 1.5 from baseline 1.2-1.3 Patient was given IV Lasix x2 and appears to be euvolemic Patient takes amiodarone at home continued Underlying dementia Monitor for any delirium Persistent atrial fibrillation Continue amiodarone 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
--- NOTE | 2021-10-24 20:41 | EKG ---
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
[2021-10-24] MEDS: SENNOSIDES 1 TABLET PO SCH (21:41)
[2021-10-25] MEDS: 0.9 % SODIUM CHLORIDE 10 ML SYRINGE IV SCH ×4 (06:10→23:42)
[2021-10-25] MEDS: PIPERACILLIN SODIUM/TAZOBACTAM 2.25 GM in DEXTROSE 5% IN WATER 50 ML IV SCH ×4 (06:10→23:41)
[2021-10-25 06:38] LABS: Basophils # (Auto) 0.04 K/mcL (0.00-0.30); Basophils % (Auto) 0.5 % (0.0-2.0); Eosinophils # (Auto) 0.73 K/mcL (0.00-0.70); Eosinophils % (Auto) 9.1 % (0.0-7.0); Hematocrit 40.9 % (40.1-51.0); Hemoglobin 12.9 g/dL (13.7-17.5); Mean Cell Volume 109.1 fL (80.0-100.0); Mean Corpuscular HGB Conc 31.5 g/dL (31.0-36.0); Mean Platelet Volume 10.3 fL (7.4-10.4); Monocytes # (Auto) 1.11 K/mcL (0.10-0.90); Monocytes % (Auto) 13.8 % (1.0-12.0); Neutrophils % (Auto) 61.6 % (38.0-78.0); Platelet Count 146 K/mcL (140-440); RBC 3.75 M/mcL (4.63-6.08); Red Cell Distribution Width 17.9 % (11.5-14.5)
[2021-10-25] MEDS: PANTOPRAZOLE 40 MG TABLET PO SCH (06:56)
[2021-10-25 08:03] LABS: ALT/SGPT 15 U/L (<40); AST/SGOT 26 U/L (<40); Albumin 2.8 gm/dL (3.2-5.2); Albumin/Globulin Ratio 0.8 (1.0-2.3); Alkaline Phosphatase 165 U/L (39-117); Bilirubin,Total 1.3 mg/dL (0.1-1.0); Blood Urea Nitrogen 31 mg/dL (8-23); Calcium 8.6 mg/dL (8.6-10.4); Carbon Dioxide 18 mmol/L (22-30); Chloride 106 mmol/L (96-108); Globulin 3.7 gm/dL (2.2-3.7); Glomerular Filtration Rate 49; Glucose 90 mg/dL (70-105)
[2021-10-25] MEDS: AZITHROMYCIN 250 MG TABLET PO SCH (08:33)
[2021-10-25] MEDS: ASPIRIN 81 MG TAB.CHEW CHEWED SCH (08:33)
[2021-10-25] MEDS: METOPROLOL SUCCINATE 50 MG TAB.XL.24H PO SCH ×2 (08:33→21:52)
[2021-10-25] MEDS: APIXABAN 5 MG TABLET PO SCH ×2 (08:34→21:52)
[2021-10-25] MEDS: DOCUSATE SODIUM 100 MG CAPSULE PO SCH ×2 (08:34→21:53)
[2021-10-25] MEDS: AMIODARONE HCL 200 MG TABLET PO SCH (08:34)
--- NOTE | 2021-10-25 15:20 | Internal Med Progress Note ---
SUBJECTIVE Subjective Patient information: Note initiated : 10/25/21 at 3:14 pm Service Date, if different from initiated Date: [] Patient: Sami Pineda 86 y/o M admitted on 10/21/21 for weakness, dehydration. Chief Complaint: [] Interval history: 86-year-old gentleman with a history of severe systolic failure with ejection fraction less than 20%, dilated cardiomyopathy biventricular ICD, was transferred from group home facility for further evaluation of progressive weakness and shortness of breath. Patient has been very dehydrated according to the report and his oxygen saturation dropping to 88% at the nursing facility patient has history of heart failure and biventricular ICD and chronic atrial fibrillation and mitral valve regurgitation. Patient takes Entresto and Eliquis has been progressively declining and was transferred over here. Initial evaluation in the ER suggestive of congestive heart failure and patient was give n IV Lasix and admitted to our facility for further management 10/22 Patient was started Zosyn and azithromycin due to CT scan showing definite consolidation and pneumonia Patient continues needing oxygen Discontinue Lasix last night patient appears to be hypovolemic or euvolemic next We will give the patient albumin infusion if his blood pressure drops 10/23 Patient continues needing 2 L of nasal cannula oxygen Continue Zosyn and azithromycin Family talk to the care team about considering hospice care for the patient wt poor quality of life 10/24 Patient continue no agitations drowsiness seems to be improving Continue Zosyn Patient needing placement 10/25 10/26 Constitutional Vitals: Vital Signs Temp Pulse Resp BP Pulse Ox 97.2 F 89 20 117/76 93 10/25/21 12:00 10/25/21 12:00 10/25/21 12:00 10/25/21 12:00 10/25/21 12:00 Period Temp Pulse Resp BP Sys/Wellington Pulse Ox Last 24 Hr 97.1 F-98.2 F 80-89 20-20 109-131/66-79 91-95 Intake and Output 10/25/21 10/25/21 10/25/21 05:59 13:59 21:59 Intake Total 400 580 Output Total 350 300 Balance 50 280 Intake & Output: Intake & Output 10/25/21 10/25/21 10/25/21 05:59 13:59 21:59 Intake Total 400 580 Output Total 350 300 Balance 50 280 Intake: Nourishment/Supplement quantity 240 (ml) IV 50 100 Zosyn 2.25 gm In Dextrose 5% in 50 100 Water 50 ml @ 100 mls/hr IV Q6H [facility] Rx#:[id number] Oral 350 240 Output: Void Amount 350 300 Other: Meal Breakfast Percent of Meal Consumed 100% Nourishment/Supplement name ensure Urine Color Dark Yellow Urine Odor Strong Stool Size Large Stool Color Green Black Stool Consistency Soft Liquid # Bowel Movements 1 Exam: General: Alert, Awake, No acute Distress Eyes/N/T: EOMI, Head/Neck: neck supple, CV: RRR, No murmurs, Pulm: rales b/l, no wheezing Abd: soft, nontender, +BS x4 Ext: no clubbing/cyanosis, b/l LE edema Neuro: sow to respond, no focal deficits, moves all extremities, Skin: warm/dry OBJ DATA Labs CBC & Chem 7: 10/25/21 05:40 10/25/21 05:39 Labs: Abnormal Lab Results 10/25/21 10/25/21 10/24/21 05:40 05:39 05:17 RBC 3.75 L Hgb 12.9 L MCV 109.1 H MCH 34.4 H RDW 17.9 H Plt Count Lymph % (Auto) 15.0 L [place] % (Auto) 13.8 H Eos % (Auto) 9.1 H Lymph # (Auto) 1.20 L [place] # (Auto) 1.11 H Eos # (Auto) 0.73 H Chloride 109 H Carbon Dioxide 18 L 19 L BUN 31 H 34 H Creatinine 1.3 H 1.3 H Calcium Magnesium 2.6 H 2.6 H Total Bilirubin 1.3 H 1.2 H Alkaline Phosphatase 165 H 137 H Albumin 2.8 L 2.8 L Albumin/Globulin Ratio 0.8 L 0.8 L 10/24/21 10/23/21 10/23/21 05:17 05:34 05:34 RBC 3.73 L 3.73 L Hgb 12.7 L 12.7 L MCV 109.4 H 109.7 H MCH RDW 18.6 H 18.7 H Plt Count 129 L 127 L Lymph % (Auto) 13.7 L [place] % (Auto) 14.4 H 15.7 H Eos % (Auto) 11.4 H 11.3 H Lymph # (Auto) 1.05 L 1.12 L [place] # (Auto) 1.10 H 1.08 H Eos # (Auto) 0.87 H 0.78 H Chloride Carbon Dioxide 21 L BUN 37 H Creatinine 1.4 H Calcium 8.5 L Magnesium Total Bilirubin 1.1 H Alkaline Phosphatase 131 H Albumin 2.7 L Albumin/Globulin Ratio 0.8 L Meds: Medications Acetaminophen (Acetaminophen 325 Mg Tablet) 650 mg PO Q6HP PRN; Protocol PRN Reason: Per Pain Protocol/Fever > 101 Last Admin: 10/21/21 21:32 Dose: 650 mg Documented by: Al Hydrox/Mg Hydrox/Simethicone (Mag Hydrox/Al Hydrox/Simeth 30 Ml Oral.Susp) 30 ml PO Q6HP PRN PRN Reason: Dyspepsia Albuterol Sulfate (Albuterol Sulfate 2.5 Mg/3 Ml Nebulizer) 2.5 mg NEB Q2HP PRN PRN Reason: Shortness Of Breath Amiodarone HCl (Amiodarone Hcl 200 Mg Tablet) 200 mg PO QDAY [facility] Last Admin: 10/25/21 08:34 Dose: 200 mg Documented by: Apixaban (Apixaban 5 Mg Tablet) 2.5 mg PO BID [facility] Last Admin: 10/25/21 08:34 Dose: 2.5 mg Documented by: Aspirin (Aspirin 81 Mg Tab.Chew) 81 mg CHEWED DAILY [facility] Last Admin: 10/25/21 08:33 Dose: 81 mg Documented by: Calcium Carbonate/Glycine (Calcium Carbonate 500 Mg Tab.Chew) 1,000 mg CHEWED Q4HP PRN PRN Reason: Dyspepsia Diltiazem HCl (Diltiazem 25 Mg/5 Ml Vial) 10 mg IV Q4HP PRN PRN Reason: Tachyarrhythmias Docusate Sodium (Docusate Sodium 100 Mg Capsule) 100 mg PO BID [facility] Last Admin: 10/25/21 08:34 Dose: 100 mg Documented by: Hydralazine HCl (Hydralazine 20 Mg/Ml Vial) 10 mg IV Q4-6HP PRN PRN Reason: Hypertension Piperacillin Sod/Tazobactam (Sod 2.25 gm/ Dextrose) 50 mls @ 100 mls/hr IV Q6H [facility]; Protocol Last Infusion: 10/25/21 12:19 Dose: Infused Documented by: Magnesium Hydroxide (Magnesium Hydroxide 30 Ml Oral.Susp) 30 ml PO DAILYP PRN PRN Reason: Constipation Melatonin (Melatonin 3 Mg Tablet) 3 mg PO HSP PRN PRN Reason: Insomnia Last Admin: 10/21/21 21:26 Dose: 3 mg Documented by: Metoprolol Succinate (Metoprolol Succinate 50 Mg Tab.Xl.24h) 100 mg PO BID [facility] Last Admin: 10/25/21 08:33 Dose: 100 mg Documented by: Ondansetron HCl (Ondansetron 4 Mg/2 Ml Vial) 4 mg IV Q6HP PRN PRN Reason: Nausea And Vomiting Pantoprazole Sodium (Pantoprazole 40 Mg Tablet) 40 mg PO QAMAC [facility] Last Admin: 10/25/21 06:56 Dose: 40 mg Documented by: Prochlorperazine (Prochlorperazine 10 Mg/2 Ml Vial) 5 mg IV Q4HP PRN PRN Reason: Nausea And Vomiting Quetiapine Fumarate (Quetiapine 25 Mg Tablet) 12.5 mg PO HSP PRN PRN Reason: iNSOMNIA-2nd option Last Admin: 10/22/21 20:11 Dose: 12.5 mg Documented by: Senna (Sennosides 1 Tablet) 2 tab PO HS [facility] Last Admin: 10/24/21 21:41 Dose: 2 tab Documented by: Sodium Chloride (0.9 % Sodium Chloride 10 Ml Syringe) 10 ml IV Q8 [facility] Last Admin: 10/25/21 11:32 Dose: 10 ml Documented by: Tramadol HCl (Tramadol 50 Mg Tablet) 50 mg PO Q4-6HP PRN; Protocol PRN Reason: Pain Last Admin: 10/23/21 17:55 Dose: 50 mg Documented by: A/P Narrative A/P Narrative: A/P; Acute hypoxemic respiratory failure: 2/2 Community-acquired pneumonia, Possible aspiration -Patient chest CT scan showing evidence of consolidation and pneumonia -No leukocytosis no fever -Will monitor for any aspiration -Sputum culture and gram stain ordered -Continue Zosyn and azithromycin *Acute on chronic systolic congestive heart failure -Chronic left ventricular failure with ejection fraction around 15 to 20% -Dilated cardiomyopathy status post biventricular ICD -Patient was given IV Lasix x2 and appears to be euvolemic -Echocardiogram ordered and preliminary reported ejection fraction less than 20% *Persistent atrial fibrillation -Continue amiodarone -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
--- NOTE | 2021-10-25 15:22 | Discharge Summary ---
Discharge Provider Provider IMPORTANT FOLLOW-UP INFORMATION FOR PCP: Patient information: Note initiated : 10/25/21 at 3:20 pm Service Date, if different from initiated Date: [] Patient: Sami Pineda 86 y/o M admitted on 10/21/21 for weakness, dehydration. Chief Complaint: [] Date of admission: 10/21/21 16:52 Discharge date: 10/26/21 Primary care physician: Kory Vidales MD Consults: 10/21/21 Consult to Physician [CONS] Stat Comment: Consulting Provider: Hiral Tai Reason For Exam: Physician to Consult COURSE Hospital Course Hospital course: Interval history: 86-year-old gentleman with a history of severe systolic failure with ejection fraction less than 20%, dilated cardiomyopathy biventricular ICD, was transferred from [facility] facility for further evaluation of progressive weakness and shortness of breath. Patient has been very dehydrated according to the report and his oxygen saturation dropping to 88% at the nursing facility patient has history of heart failure and biventricular ICD and chronic atrial fibrillation and mitral valve regurgitation. Patient takes Entresto and Eliquis has been progressively declining and was transferred over here. Initial evaluation in the ER suggestive of congestive heart failure and patient was given IV Lasix and admitted to our facility for further management 10/22 Patient was started Zosyn and azithromycin due to CT scan showing definite consolidation and pneumonia Patient continues needing oxygen Discontinue Lasix last night patient appears to be hypovolemic or euvolemic next We will give the patient albumin infusion if his blood pressure drops 10/23 Patient continues needing 2 L of nasal cannula oxygen Continue Zosyn and azithromycin Family talk to the care team about considering hospice care for the patient wt poor quality of life 10/24 Patient continue no agitations drowsiness seems to be improving Continue Zosyn Patient needing placement 10/25 10/26 No overnight event or new complaints. Lasix given yesterday. On oxygen therapy as 1 L. Electrolyte disorder. Significant heart failure with left and right heart failure with valvular disease and pulmonary hypertension. A/P; Acute hypoxemic respiratory failure: 2/2 Community-acquired pneumonia, Possible aspiration -Patient chest CT scan showing evidence of consolidation and pneumonia *Acute on chronic systolic congestive heart failure+ Right HF + Valvular dz (mod-sev TR, mild-mod MR/AR): -Chronic left ventricular failure with ejection fraction around 15-20% -Dilated cardiomyopathy status post biventricular ICD *Persistent atrial fibrillation -Continue amiodarone -Continue metoprolol *Moderate to severe mitral regurgitation: *CKD III: *Underlying dementia -Monitor for any delirium Discharge diagnosis: Pneumonia possibly aspiration hypoxic respite failure acute on chronic hear Secondary discharge diagnosis: Acute on chronic heart failure persistent A. fib moderate severe mitral regurgitation chronic kidney disease underlying dementia Time Spent with Patient Time attestation: Total time spent providing and/or coordinating discharge services: Time spent: Greater than 30 minutes EXAM Constitutional Vitals: Temp Pulse Resp BP Pulse Ox 97.2 F 89 20 117/76 93 10/25/21 12:00 10/25/21 12:00 10/25/21 12:00 10/25/21 12:00 10/25/21 12:00 Discharge Data Data Completed and Pending Labs on day of discharge: Labs from last 24 hours 10/25/21 10/25/21 05:40 05:39 WBC 8.0 RBC 3.75 L Hgb 12.9 L Hct 40.9 MCV 109.1 H MCH 34.4 H MCHC 31.5 RDW 17.9 H Plt Count 146 MPV 10.3 Neut % (Auto) 61.6 Lymph % (Auto) 15.0 L [place] % (Auto) 13.8 H Eos % (Auto) 9.1 H Baso % (Auto) 0.5 Lymph # (Auto) 1.20 L [place] # (Auto) 1.11 H Eos # (Auto) 0.73 H Baso # (Auto) 0.04 Absolute Neutrophils 4.94 Sodium 138 Potassium 4.5 Chloride 106 Carbon Dioxide 18 L Anion Gap 14.0 BUN 31 H Creatinine 1.3 H GFR Calculation 49 Glucose 90 Calcium 8.6 Magnesium 2.6 H Total Bilirubin 1.3 H AST 26 ALT 15 Alkaline Phosphatase 165 H Total Protein 6.5 Albumin 2.8 L Globulin 3.7 Albumin/Globulin Ratio 0.8 L Discharge Plan Patient/Caregiver Discharge Instructions Activity: ambulate only with your walker Diet: Low Sodium (2gm) Activity Restrictions/Additional Instructions: follow up with Hospice outpatient for informational meeting. Prescriptions: New amoxicillin-pot clavulanate 875-125 mg tablet 1 tab PO BID Qty: 4 0RF Continued acetaminophen [Tylenol Arthritis Pain] 650 mg tablet extended release See Rx Instructions PO .COMPLEX Qty: 150 12RF Rx Instructions: Take 2 tablets every morning and afternoon, 1 tablet every evening PO. apixaban 2.5 mg tablet 2.5 mg PO BID 0RF furosemide 40 mg tablet 40 mg PO QDAY 0RF metoprolol succinate 100 mg tablet extended release 24 hr 100 mg PO BID 0RF Entresto 49-51 mg tablet 1 tab PO BID 0RF amiodarone 200 mg tablet 200 mg PO QDAY 0RF ferrous sulfate 1 tab PO Q48H 0RF Kacey Allergy 180 mg PO DAILY 0RF Remedy Calazime Intensive Skin 1 dose topical DAILY 0RF Proctozone-HC 2.5 % topical Q12HP PRN (Reason: Pain) 0RF cyanocobalamin (vitamin B-12) 5,000 mcg Capsule 5,000 mcg PO DAILY 0RF Follow Up Plan Follow up with: Kory Vidales MD [Primary Care Provider] - Patient Disposition: Xfer Assisted Living Facility Prognosis: Undetermined Rehab Potential: Fair I certify that the patient requires SNF services: Yes Overall status at discharge: patient is progressing back to baseline Discharge Orders: Discharge Order (Routine); Ordered 10/26/21 Ordered By: Efraín Fletcher
[2021-10-25] MEDS ORDERED: FUROSEMIDE 20 MG/2 ML VIAL IV ONE (15:32)
[2021-10-25] MEDS ORDERED: ALBUMIN HUMAN 12.5 GM/50 ML BAG IV ONE (15:32)
[2021-10-25] MEDS: ALBUTEROL SULFATE 2.5 MG/3 ML NEBULIZER NEB PRN ×2 (17:21→23:44)
[2021-10-25] MEDS: SENNOSIDES 1 TABLET PO SCH (21:53)
--- NOTE | 2021-10-25 22:19 | Internal Med Progress Note ---
SUBJECTIVE Subjective Patient information: Note initiated : 10/25/21 at 10:19 pm Service Date, if different from initiated Date: [] Patient: Sami Pineda 86 y/o M admitted on 10/21/21 for weakness, dehydration. Chief Complaint: [] Interval history: 86-year-old gentleman with a history of severe systolic failure with ejection fraction less than 20%, dilated cardiomyopathy biventricular ICD, was transferred from care home facility for further evaluation of progressive weakness and shortness of breath. Patient has been very dehydrated according to the report and his oxygen saturation dropping to 88% at the nursing facility patient has history of heart failure and biventricular ICD and chronic atrial fibrillation and mitral valve regurgitation. Patient takes Entresto and Eliquis has been progressively declining and was transferred over here. Initial evaluation in the ER suggestive of congestive heart failure and patient was giv en IV Lasix and admitted to our facility for further management 10/22 Patient was started Zosyn and azithromycin due to CT scan showing definite consolidation and pneumonia Patient continues needing oxygen Discontinue Lasix last night patient appears to be hypovolemic or euvolemic next We will give the patient albumin infusion if his blood pressure drops 10/23 Patient continues needing 2 L of nasal cannula oxygen Continue Zosyn and azithromycin Family talk to the care team about considering hospice care for the patient wt poor quality of life 10/24 Patient continue no agitations drowsiness seems to be improving Continue Zosyn Patient needing placement Review of systems- 10 point review of system unremarkable Patient denied any respiratory symptoms other than cough chest symptoms and ches t congestion improving Physical exam Head: Very sleepy answering questions slowly Respiratory: Crackles and intermittent wheezing and rails no significant improvement Cardiovascular: Edema improved GI/Abdominal: soft, nontender, no guarding. Extremities: full range of motion, nontender. Neurological: Slow to respond no focal deficit identified no hallucination no delusions Psychiatric: No active hallucination Constitutional Vitals: Vital Signs Temp Pulse Resp BP Pulse Ox 98.6 F 87 22 106/70 93 10/25/21 19:34 10/25/21 19:34 10/25/21 19:34 10/25/21 19:34 10/25/21 19:56 Period Temp Pulse Resp BP Sys/[place] Pulse Ox Last 24 Hr 97.1 F-98.6 F 82-92 20-22 106-131/68-85 91-93 Intake and Output 10/25/21 10/25/21 10/26/21 13:59 21:59 05:59 Intake Total 580 100 Output Total 300 401 Balance 280 -301 Weight 69.536 kg Patient Weight 10/26/21 05:59 Weight 69.536 kg Intake & Output: Intake & Output 10/25/21 10/25/21 10/26/21 13:59 21:59 05:59 Intake Total 580 100 Output Total 300 401 Balance 280 -301 Weight 69.536 kg Intake: Nourishment/Supplement quantity 240 (ml) IV 100 100 Zosyn 2.25 gm In Dextrose 5% in 100 50 Water 50 ml @ 100 mls/hr IV Q6H [facility] Rx#:[id number] Oral 240 Output: Void Amount 300 400 # of times incontinent of urine 1 Other: Meal Breakfast Percent of Meal Consumed 100% Nourishment/Supplement name ensure Urine Appearance Clear Urine Color Dark Yellow Bright Yellow Urine Odor Strong Stool Size Large Stool Color Green Black Stool Consistency Soft Liquid # Voids 1 # Bowel Movements 1 OBJ DATA Labs CBC & Chem 7: 10/25/21 05:40 10/25/21 05:39 Labs: Abnormal Lab Results 10/25/21 10/25/21 10/24/21 05:40 05:39 05:17 RBC 3.75 L Hgb 12.9 L MCV 109.1 H MCH 34.4 H RDW 17.9 H Plt Count Lymph % (Auto) 15.0 L [place] % (Auto) 13.8 H Eos % (Auto) 9.1 H Lymph # (Auto) 1.20 L [place] # (Auto) 1.11 H Eos # (Auto) 0.73 H Chloride 109 H Carbon Dioxide 18 L 19 L BUN 31 H 34 H Creatinine 1.3 H 1.3 H Calcium Magnesium 2.6 H 2.6 H Total Bilirubin 1.3 H 1.2 H Alkaline Phosphatase 165 H 137 H Albumin 2.8 L 2.8 L Albumin/Globulin Ratio 0.8 L 0.8 L 10/24/21 10/23/21 10/23/21 05:17 05:34 05:34 RBC 3.73 L 3.73 L Hgb 12.7 L 12.7 L MCV 109.4 H 109.7 H MCH RDW 18.6 H 18.7 H Plt Count 129 L 127 L Lymph % (Auto) 13.7 L [place] % (Auto) 14.4 H 15.7 H Eos % (Auto) 11.4 H 11.3 H Lymph # (Auto) 1.05 L 1.12 L [place] # (Auto) 1.10 H 1.08 H Eos # (Auto) 0.87 H 0.78 H Chloride Carbon Dioxide 21 L BUN 37 H Creatinine 1.4 H Calcium 8.5 L Magnesium Total Bilirubin 1.1 H Alkaline Phosphatase 131 H Albumin 2.7 L Albumin/Globulin Ratio 0.8 L Meds: Medications Acetaminophen (Acetaminophen 325 Mg Tablet) 650 mg PO Q6HP PRN; Protocol PRN Reason: Per Pain Protocol/Fever > 101 Last Admin: 10/21/21 21:32 Dose: 650 mg Documented by: Al Hydrox/Mg Hydrox/Simethicone (Mag Hydrox/Al Hydrox/Simeth 30 Ml Oral.Susp) 30 ml PO Q6HP PRN PRN Reason: Dyspepsia Albuterol Sulfate (Albuterol Sulfate 2.5 Mg/3 Ml Nebulizer) 2.5 mg NEB Q2HP PRN PRN Reason: Shortness Of Breath Last Admin: 10/25/21 17:21 Dose: 2.5 mg Documented by: Amiodarone HCl (Amiodarone Hcl 200 Mg Tablet) 200 mg PO QDAY [facility] Last Admin: 10/25/21 08:34 Dose: 200 mg Documented by: Apixaban (Apixaban 5 Mg Tablet) 2.5 mg PO BID [facility] Last Admin: 10/25/21 21:52 Dose: 2.5 mg Documented by: Aspirin (Aspirin 81 Mg Tab.Chew) 81 mg CHEWED DAILY [facility] Last Admin: 10/25/21 08:33 Dose: 81 mg Documented by: Calcium Carbonate/Glycine (Calcium Carbonate 500 Mg Tab.Chew) 1,000 mg CHEWED Q4HP PRN PRN Reason: Dyspepsia Diltiazem HCl (Diltiazem 25 Mg/5 Ml Vial) 10 mg IV Q4HP PRN PRN Reason: Tachyarrhythmias Docusate Sodium (Docusate Sodium 100 Mg Capsule) 100 mg PO BID [facility] Last Admin: 10/25/21 21:53 Dose: Not Given Documented by: Hydralazine HCl (Hydralazine 20 Mg/Ml Vial) 10 mg IV Q4-6HP PRN PRN Reason: Hypertension Piperacillin Sod/Tazobactam (Sod 2.25 gm/ Dextrose) 50 mls @ 100 mls/hr IV Q6H [facility]; Protocol Last Infusion: 10/25/21 18:08 Dose: Infused Documented by: Magnesium Hydroxide (Magnesium Hydroxide 30 Ml Oral.Susp) 30 ml PO DAILYP PRN PRN Reason: Constipation Melatonin (Melatonin 3 Mg Tablet) 3 mg PO HSP PRN PRN Reason: Insomnia Last Admin: 10/21/21 21:26 Dose: 3 mg Documented by: Metoprolol Succinate (Metoprolol Succinate 50 Mg Tab.Xl.24h) 100 mg PO BID [facility] Last Admin: 10/25/21 21:52 Dose: 100 mg Documented by: Ondansetron HCl (Ondansetron 4 Mg/2 Ml Vial) 4 mg IV Q6HP PRN PRN Reason: Nausea And Vomiting Pantoprazole Sodium (Pantoprazole 40 Mg Tablet) 40 mg PO QAMAC [facility] Last Admin: 10/25/21 06:56 Dose: 40 mg Documented by: Prochlorperazine (Prochlorperazine 10 Mg/2 Ml Vial) 5 mg IV Q4HP PRN PRN Reason: Nausea And Vomiting Quetiapine Fumarate (Quetiapine 25 Mg Tablet) 12.5 mg PO HSP PRN PRN Reason: iNSOMNIA-2nd option Last Admin: 10/22/21 20:11 Dose: 12.5 mg Documented by: Senna (Sennosides 1 Tablet) 2 tab PO HS [facility] Last Admin: 10/25/21 21:53 Dose: Not Given Documented by: Sodium Chloride (0.9 % Sodium Chloride 10 Ml Syringe) 10 ml IV Q8 [facility] Last Admin: 10/25/21 15:57 Dose: 10 ml Documented by: Tramadol HCl (Tramadol 50 Mg Tablet) 50 mg PO Q4-6HP PRN; Protocol PRN Reason: Pain Last Admin: 10/23/21 17:55 Dose: 50 mg Documented by: A/P Time Spent With Patient Time: Total time spent is greater than 50% in coordination of care (as documented) at patient's floor/unit and/or counseling patient:
[2021-10-26] MEDS: PIPERACILLIN SODIUM/TAZOBACTAM 2.25 GM in DEXTROSE 5% IN WATER 50 ML IV SCH (05:29)
[2021-10-26] MEDS: 0.9 % SODIUM CHLORIDE 10 ML SYRINGE IV SCH ×2 (05:29→15:13)
[2021-10-26 07:13] LABS: ALT/SGPT 14 U/L (<40); AST/SGOT 23 U/L (<40); Albumin/Globulin Ratio 0.8 (1.0-2.3); Alkaline Phosphatase 155 U/L (39-117); Bilirubin,Direct 0.6 mg/dL (<0.3); Bilirubin,Total 1.2 mg/dL (0.1-1.0); Blood Urea Nitrogen 30 mg/dL (8-23); Calcium 8.7 mg/dL (8.6-10.4); Carbon Dioxide 21 mmol/L (22-30); Chloride 106 mmol/L (96-108); Globulin 3.7 gm/dL (2.2-3.7); Glomerular Filtration Rate 45; Glucose 95 mg/dL (70-105); Lactate Dehydrogenase 302 U/L (135-225); Phosphorous 3.1 mg/dL (2.5-4.5); Triglycerides 41 mg/dL (<150); Uric Acid 6.1 mg/dL (2.5-8.0)
[2021-10-26] MEDS: APIXABAN 5 MG TABLET PO SCH (08:32)
[2021-10-26] MEDS: PANTOPRAZOLE 40 MG TABLET PO SCH (08:32)
[2021-10-26] MEDS: DOCUSATE SODIUM 100 MG CAPSULE PO SCH (08:32)
[2021-10-26] MEDS: AMIODARONE HCL 200 MG TABLET PO SCH (08:32)
[2021-10-26] MEDS: ASPIRIN 81 MG TAB.CHEW CHEWED SCH (08:32)
[2021-10-26] MEDS: METOPROLOL SUCCINATE 50 MG TAB.XL.24H PO SCH (08:32)
--- NOTE | 2021-10-26 08:41 | Internal Med Progress Note ---
SUBJECTIVE Subjective Patient information: Note initiated : 10/26/21 at 8:37 am Service Date, if different from initiated Date: [] Patient: Sami Pineda 86 y/o M admitted on 10/21/21 for weakness, dehydration. Chief Complaint: [] Interval history: 86-year-old gentleman with a history of severe systolic failure with ejection fraction less than 20%, dilated cardiomyopathy biventricular ICD, was transferred from long-term facility for further evaluation of progressive weakness and shortness of breath. Patient has been very dehydrated according to the report and his oxygen saturation dropping to 88% at the nursing facility patient has history of heart failure and biventricular ICD and chronic atrial fibrillation and mitral valve regurgitation. Patient takes Entresto and Eliquis has been progressively declining and was transferred over here. Initial evaluation in the ER suggestive of congestive heart failure and patient was give n IV Lasix and admitted to our facility for further management 10/22 Patient was started Zosyn and azithromycin due to CT scan showing definite consolidation and pneumonia Patient continues needing oxygen Discontinue Lasix last night patient appears to be hypovolemic or euvolemic next We will give the patient albumin infusion if his blood pressure drops 10/23 Patient continues needing 2 L of nasal cannula oxygen Continue Zosyn and azithromycin Family talk to the care team about considering hospice care for the patient wt poor quality of life 10/24 Patient continue no agitations drowsiness seems to be improving Continue Zosyn Patient needing placement 10/25 10/26 No overnight event or new complaints. Lasix given yesterday. On oxygen therapy as 1 L. Electrolyte disorder. Significant heart failure with left and right heart failure with valvular disease and pulmonary hypertension. Review of Systems: denies headache/fever/chills/nausea/vomiting/chest or abdominal pain/diarrhea. Otherwise see above. Constitutional Vitals: Vital Signs Temp Pulse Resp BP Pulse Ox 98.3 F 99 H 20 119/69 92 10/26/21 02:39 10/26/21 02:39 10/26/21 02:39 10/26/21 02:39 10/26/21 02:39 Period Temp Pulse Resp BP Sys/[place] Pulse Ox Last 24 Hr 97.2 F-98.7 F 84-99 - 106-127/68-85 90-93 Intake and Output 10/25/21 10/26/21 10/26/21 21:59 05:59 13:59 Intake Total 100 350 50 Output Total 401 250 Balance -301 100 50 Weight 69.536 kg Intake & Output: Intake & Output 10/25/21 10/26/21 10/26/21 21:59 05:59 13:59 Intake Total 100 350 50 Output Total 401 250 Balance -301 100 50 Weight 69.536 kg Intake: IV 100 50 50 Zosyn 2.25 gm In Dextrose 5% in 50 50 50 Water 50 ml @ 100 mls/hr IV Q6H [facility] Rx#:[id number] Oral 300 Output: Void Amount 400 250 # of times incontinent of urine 1 Other: Urine Appearance Clear Clear Urine Color Bright Yellow Bright Yellow # Voids 1 Exam: General: Alert, Awake, No acute Distress Eyes/N/T: EOMI, Head/Neck: neck supple, CV: RRR, No murmurs, Pulm: mild rales b/l and occasional wheezing Abd: soft, nontender, +BS x4 Ext: no clubbing/cyanosis, b/l LE mild edema Neuro: sow to respond, no focal deficits, moves all extremities, Skin: warm/dry OBJ DATA Labs CBC & Chem 7: 10/25/21 05:40 10/26/21 05:14 Labs: Abnormal Lab Results 10/26/21 10/25/21 10/25/21 05:14 05:40 05:39 RBC 3.75 L Hgb 12.9 L MCV 109.1 H MCH 34.4 H RDW 17.9 H Plt Count Lymph % (Auto) 15.0 L [place] % (Auto) 13.8 H Eos % (Auto) 9.1 H Lymph # (Auto) 1.20 L [place] # (Auto) 1.11 H Eos # (Auto) 0.73 H Chloride Carbon Dioxide 21 L 18 L BUN 30 H 31 H Creatinine 1.4 H 1.3 H Magnesium 2.6 H 2.6 H Total Bilirubin 1.2 H 1.3 H Direct Bilirubin 0.6 H GGT 106 H Alkaline Phosphatase 155 H 165 H Lactate Dehydrogenase 302 H Albumin 3.0 L 2.8 L Albumin/Globulin Ratio 0.8 L 0.8 L 10/24/21 10/24/21 05:17 05:17 RBC 3.73 L Hgb 12.7 L MCV 109.4 H MCH RDW 18.6 H Plt Count 129 L Lymph % (Auto) 13.7 L [place] % (Auto) 14.4 H Eos % (Auto) 11.4 H Lymph # (Auto) 1.05 L [place] # (Auto) 1.10 H Eos # (Auto) 0.87 H Chloride 109 H Carbon Dioxide 19 L BUN 34 H Creatinine 1.3 H Magnesium 2.6 H Total Bilirubin 1.2 H Direct Bilirubin GGT Alkaline Phosphatase 137 H Lactate Dehydrogenase Albumin 2.8 L Albumin/Globulin Ratio 0.8 L Meds: Medications Acetaminophen (Acetaminophen 325 Mg Tablet) 650 mg PO Q6HP PRN; Protocol PRN Reason: Per Pain Protocol/Fever > 101 Last Admin: 10/21/21 21:32 Dose: 650 mg Documented by: Al Hydrox/Mg Hydrox/Simethicone (Mag Hydrox/Al Hydrox/Simeth 30 Ml Oral.Susp) 30 ml PO Q6HP PRN PRN Reason: Dyspepsia Albuterol Sulfate (Albuterol Sulfate 2.5 Mg/3 Ml Nebulizer) 2.5 mg NEB Q2HP PRN PRN Reason: Shortness Of Breath Last Admin: 10/25/21 23:44 Dose: 2.5 mg Documented by: Amiodarone HCl (Amiodarone Hcl 200 Mg Tablet) 200 mg PO QDAY [facility] Last Admin: 10/26/21 08:32 Dose: 200 mg Documented by: Apixaban (Apixaban 5 Mg Tablet) 2.5 mg PO BID [facility] Last Admin: 10/26/21 08:32 Dose: 2.5 mg Documented by: Aspirin (Aspirin 81 Mg Tab.Chew) 81 mg CHEWED DAILY [facility] Last Admin: 10/26/21 08:32 Dose: 81 mg Documented by: Calcium Carbonate/Glycine (Calcium Carbonate 500 Mg Tab.Chew) 1,000 mg CHEWED Q4HP PRN PRN Reason: Dyspepsia Diltiazem HCl (Diltiazem 25 Mg/5 Ml Vial) 10 mg IV Q4HP PRN PRN Reason: Tachyarrhythmias Docusate Sodium (Docusate Sodium 100 Mg Capsule) 100 mg PO BID [facility] Last Admin: 10/26/21 08:32 Dose: 100 mg Documented by: Hydralazine HCl (Hydralazine 20 Mg/Ml Vial) 10 mg IV Q4-6HP PRN PRN Reason: Hypertension Piperacillin Sod/Tazobactam (Sod 2.25 gm/ Dextrose) 50 mls @ 100 mls/hr IV Q6H [facility]; Protocol Last Infusion: 10/26/21 06:03 Dose: Infused Documented by: Magnesium Hydroxide (Magnesium Hydroxide 30 Ml Oral.Susp) 30 ml PO DAILYP PRN PRN Reason: Constipation Melatonin (Melatonin 3 Mg Tablet) 3 mg PO HSP PRN PRN Reason: Insomnia Last Admin: 10/21/21 21:26 Dose: 3 mg Documented by: Metoprolol Succinate (Metoprolol Succinate 50 Mg Tab.Xl.24h) 100 mg PO BID [facility] Last Admin: 10/26/21 08:32 Dose: 100 mg Documented by: Ondansetron HCl (Ondansetron 4 Mg/2 Ml Vial) 4 mg IV Q6HP PRN PRN Reason: Nausea And Vomiting Pantoprazole Sodium (Pantoprazole 40 Mg Tablet) 40 mg PO QAMAC [facility] Last Admin: 10/26/21 08:32 Dose: 40 mg Documented by: Prochlorperazine (Prochlorperazine 10 Mg/2 Ml Vial) 5 mg IV Q4HP PRN PRN Reason: Nausea And Vomiting Quetiapine Fumarate (Quetiapine 25 Mg Tablet) 12.5 mg PO HSP PRN PRN Reason: iNSOMNIA-2nd option Last Admin: 10/22/21 20:11 Dose: 12.5 mg Documented by: Senna (Sennosides 1 Tablet) 2 tab PO HS [facility] Last Admin: 10/25/21 21:53 Dose: Not Given Documented by: Sodium Chloride (0.9 % Sodium Chloride 10 Ml Syringe) 10 ml IV Q8 [facility] Last Admin: 10/26/21 05:29 Dose: 10 ml Documented by: Tramadol HCl (Tramadol 50 Mg Tablet) 50 mg PO Q4-6HP PRN; Protocol PRN Reason: Pain Last Admin: 10/23/21 17:55 Dose: 50 mg Documented by: A/P Narrative A/P Narrative: A/P; Acute hypoxemic respiratory failure: 2/2 Community-acquired pneumonia, Possible aspiration -Patient chest CT scan showing evidence of consolidation and pneumonia -Will monitor for any aspiration -IS/Acapella -Sputum culture and gram stain ordered -Continue Zosyn(deescalate) and azithromycin -on 1L NC *Acute on chronic systolic congestive heart failure + Right HF + Valvular dz (mod-sev TR, mild-mod MR/AR): -Chronic left ventricular failure with ejection fraction around 15-20% -Dilated cardiomyopathy status post biventricular ICD -IV lasix now *Persistent atrial fibrillation -Continue amiodarone -Continue metoprolol -youth nutritional monitor *Moderate to severe mitral regurgitation: *CKD III: -creatinine was slightly elevated 1.5 from baseline 1.2-1.3 *Underlying dementia -Monitor for any delirium *Goals of care: *DVT prophylaxis: Lovenox CODE STATUS-DNR -family is considering hospice care because of the poor quality of life, but pt showed improvement here. Time Spent With Patient Time: Total time spent is greater than 50% in coordination of care (as documented) at patient's floor/unit and/or counseling patient: Total time spent with greater than 50% in coordination of care (as documented) at patient's floor/unit and/or counseling patient:: 35 - 50 minutes
[2021-10-26] MEDS ORDERED: FUROSEMIDE 40 MG/4 ML VIAL IV ONE (09:19)
[2021-10-26] MEDS ORDERED: ALBUMIN HUMAN 12.5 GM/50 ML BAG IV ONE (09:20)
[2021-10-26] MEDS ORDERED: cefTRIAXone 2 GM in DEXTROSE 5% IN WATER 50 ML IV SCH (10:00)
== END 2021-10-26 15:40 | DRG 177 ==
LOC: ED 12:10 → MEDSUR 16:52
PROVIDERS: ADMIT Internal Medicine; ATTEND Internal Medicine